=== PATIENT | male | born 1960 | race Caucasian/White ===

== ENCOUNTER 2019-04-13 14:11 | Inpatient (IN) | payer MEDICAID ==
[~2019-04-13] VITALS: Ht 172.7 cm; Wt 93.1 kg
[~2019-04-13 14:11] MED LIST: ASPI-1393 PO; COR25 PO; FURO-152 PO; HYDR-4134 PO; ISOS20TA8 PO; LIP40 PO; LISI-652 PO; PRAS10TA6 PO
[2019-04-13] MEDS ORDERED: ASPIRIN 81MG TABLET PO ONE (15:15)
[2019-04-13 17:16] LABS: BASOPHILS % 1.2 % (0.0-2.0); HEMATOCRIT. 39.6 % (42.0-52.0); HEMOGLOBIN. 13.6 g/dL (14.0-18.0); LYMPHOCYTES % 29.7 % (20.0-50.0); MEAN CORPUSCULAR HEMOGLOBIN 31.7 pg (28.0-32.0); MEAN CORPUSCULAR VOLUME 92.1 fL (80.0-94.0); MEAN PLATELET VOLUME 8.6 fl (7.4-10.4); MONOCYTES % 8.8 % (2.0-8.0); NEUTROPHILS % 56.3 % (40.0-76.0); PLATELET 207 x1000/uL (130-400); RED BLOOD CELL COUNT 4.31 mill/uL (4.7-6.1); RED CELL DISTRIBUTION WIDTH 13.3 % (11.6-14.6)
[2019-04-13 17:17] LABS: CHLORIDE 100 mEq/L (98-107)
[2019-04-13 17:23] LABS: D-DIMER 0.3 mg/L FEU (<0.50); PARTIAL THROMBOPLASTIN TIME 26.6 sec (23.4-31.0); PROTHROMBIN TIME 10.3 sec (9.6-11.0)
[2019-04-13] MEDS ORDERED: POTASSIUM CHLORIDE 20MEQ TABLET SR PO ONE (18:00)
[2019-04-13] MEDS ORDERED: KCL 20MEQ/100ML PREMIX 100 ML IV ONE (18:00)
[2019-04-13] MEDS ORDERED: NITROGLYCERIN 0.4MG TABLET SL SL PRN (18:00)
[2019-04-13] MEDS ORDERED: ENOXAPARIN 100MG/ML SYR SUBCUT ONE (18:15)
[2019-04-13 22:00] VITALS: BP 137/81
[2019-04-13 22:46] VITALS: BP 137/81
[2019-04-14] MEDS ORDERED: TEMA15CA PO (00:31)
[2019-04-14] MEDS ORDERED: TEMAZEPAM 15MG CAPSULE PO PRN (01:00)
[2019-04-14] MEDS: NITROGLYCERIN OINT 1GM/INCH UDPKT TD SCH ×4 (01:07→20:48)
[2019-04-14] MEDS ORDERED: HYDR25TA MT (01:30)
[2019-04-14] MEDS ORDERED: LOSA100T32 MT (01:30)
[2019-04-14] MEDS ORDERED: AMLO10TA4 MT (01:36)
[2019-04-14] MEDS ORDERED: POTA-79 MT (01:38)
[2019-04-14] MEDS ORDERED: METF-414 MT (01:39)
[2019-04-14] MEDS ORDERED: FURO-151 MT (01:40)
[2019-04-14] MEDS ORDERED: NITR0.4T49 SL (01:47)
[2019-04-14 04:00] VITALS: BP 162/78
[2019-04-14] MEDS: MORPHINE SULFATE 2 MG/ML CPJ (NOT FOR IM USE) IV PRN ×2 (04:37→20:51)
[2019-04-14 05:30] LABS: CHLORIDE 105 mEq/L (98-107)
[2019-04-14 06:03] LABS: BASOPHILS % 1.8 % (0.0-2.0); EOSINOPHILS % 4.2 % (0.0-5.0); HEMATOCRIT. 41.5 % (42.0-52.0); HEMOGLOBIN. 14.4 g/dL (14.0-18.0); LYMPHOCYTES % 33.5 % (20.0-50.0); MEAN CORPUSCULAR HEMOGLOBIN 31.7 pg (28.0-32.0); MEAN CORPUSCULAR VOLUME 91.3 fL (80.0-94.0); MEAN PLATELET VOLUME 8.8 fl (7.4-10.4); NEUTROPHILS % 49.5 % (40.0-76.0); PLATELET 206 x1000/uL (130-400); RED BLOOD CELL COUNT 4.55 mill/uL (4.7-6.1); RED CELL DISTRIBUTION WIDTH 13.4 % (11.6-14.6)
[2019-04-14] MEDS: BLOOD SUGAR DIAGNOSTIC STRIP TEST SCH ×4 (07:01→21:00)
[2019-04-14] MEDS ORDERED: METFORMIN HCL 500MG TABLET PO SCH (07:15)
[2019-04-14 08:00] VITALS: BP 144/91
[2019-04-14] MEDS: CARVEDILOL 12.5MG TABLET PO SCH ×2 (08:46→20:53)
[2019-04-14] MEDS: POTASSIUM CHLORIDE 20MEQ TABLET SR PO SCH (08:47)
[2019-04-14] MEDS: ASPIRIN 81MG TABLET PO SCH (08:47)
[2019-04-14] MEDS ORDERED: FUROSEMIDE 20MG TABLET PO SCH (09:00)
[2019-04-14] MEDS ORDERED: PRASUGREL HYDROCHLORIDE 10 MG PO SCH (09:00)
[2019-04-14 12:00] VITALS: BP 122/75
[2019-04-14] MEDS: INSULIN LISPRO 100 UNITS/ML SUBCUT SCH ×3 (12:15→21:00)
[2019-04-14] MEDS ORDERED: CLONIDINE 0.1MG TABLET PO PRN (12:15)
[2019-04-14] MEDS ORDERED: CLONIDINE 0.2MG TABLET PO PRN (12:15)
[2019-04-14] MEDS ORDERED: DEXTROSE 50% WATER 50ML SYRINGE IV PRN (12:15)
[2019-04-14] MEDS ORDERED: POTASSIUM CHLORIDE 20MEQ TABLET SR PO NR ×2 (12:15→19:00)
[2019-04-14] MEDS: LOSARTAN POTASSIUM 25 MG TABLET PO SCH ×2 (13:24→20:52)
[2019-04-14] MEDS: ENOXAPARIN 80MG/0.8ML SYR SUBCUT SCH (13:25)
[2019-04-14] MEDS ORDERED: CLOPIDOGREL 75MG TABLET PO NR (16:00)
[2019-04-14 16:33] LABS: CREATINE KINASE MB FRACTION 3.5 ng/mL (0.5-3.6)
[2019-04-14 20:30] VITALS: BP 182/99
[2019-04-14] MEDS: ATORVASTATIN CALCIUM 40MG TABLET PO SCH (20:51)
[2019-04-14] MEDS: NITROGLYCERIN 0.4MG TABLET SL SL PRN (22:02)
[2019-04-14 23:41] VITALS: BP 141/78
[2019-04-15] VITALS (9 sets, daily range): BP systolic 120–152; BP diastolic 67–98
[2019-04-15] MEDS: ENOXAPARIN 80MG/0.8ML SYR SUBCUT SCH ×2 (00:15→01:03)
[2019-04-15] MEDS: NITROGLYCERIN OINT 1GM/INCH UDPKT TD SCH ×4 (01:07→17:25)
[2019-04-15] MEDS: NITROGLYCERIN 0.4MG TABLET SL SL PRN ×2 (06:42→11:19)
[2019-04-15] MEDS: BLOOD SUGAR DIAGNOSTIC STRIP TEST SCH ×4 (06:46→21:02)
[2019-04-15] MEDS: INSULIN LISPRO 100 UNITS/ML SUBCUT SCH ×4 (06:46→21:15)
[2019-04-15 07:18] LABS: CHLORIDE 109 mEq/L (98-107)
[2019-04-15 07:26] LABS: HDL CHOLESTEROL 38 mg/dL (40-59)
[2019-04-15 07:29] LABS: LDL CHOLESTEROL 73 mg/dL (5-100)
[2019-04-15 07:30] LABS: CREATINE KINASE 93 IU/L (39-308)
[2019-04-15 07:32] LABS: BASOPHILS % 1.2 % (0.0-2.0); EOSINOPHILS % 4.3 % (0.0-5.0); HEMATOCRIT. 41.3 % (42.0-52.0); HEMOGLOBIN. 14.2 g/dL (14.0-18.0); LYMPHOCYTES % 22.5 % (20.0-50.0); MEAN CORPUSCULAR HEMOGLOBIN 32.1 pg (28.0-32.0); MEAN CORPUSCULAR VOLUME 93.2 fL (80.0-94.0); MEAN PLATELET VOLUME 9.2 fl (7.4-10.4); MONOCYTES % 9.1 % (2.0-8.0); NEUTROPHILS % 62.9 % (40.0-76.0); PLATELET 192 x1000/uL (130-400); RED BLOOD CELL COUNT 4.43 mill/uL (4.7-6.1); RED CELL DISTRIBUTION WIDTH 13.2 % (11.6-14.6)
[2019-04-15 07:34] LABS: CREATINE KINASE MB FRACTION 3.1 ng/mL (0.5-3.6)
[2019-04-15] MEDS: CLOPIDOGREL 75MG TABLET PO SCH (08:14)
[2019-04-15] MEDS: POTASSIUM CHLORIDE 20MEQ TABLET SR PO SCH (08:14)
[2019-04-15] MEDS: ASPIRIN 81MG TABLET PO SCH (08:15)
[2019-04-15] MEDS: TICAGRELOR 90 MG TABLET PO SCH ×2 (08:15→17:26)
[2019-04-15] MEDS: LOSARTAN POTASSIUM 25 MG TABLET PO SCH ×2 (08:16→21:24)
[2019-04-15] MEDS: CARVEDILOL 12.5MG TABLET PO SCH ×2 (08:16→21:22)
[2019-04-15 11:21] LABS: *AMPHETAMINES SCREEN URINE NEGATIVE (NEGATIVE)
[2019-04-15 11:22] LABS: *BARBITURATES SCREEN URINE NEGATIVE (NEGATIVE); *BENZODIAZEPINES SCREEN URINE NEGATIVE (NEGATIVE); *COCAINE SCREEN URINE NEGATIVE (NEGATIVE); METHADONE URINE SCREEN NEGATIVE (NEGATIVE); OPIATES URINE SCREEN PRESUMTIVE POSITIVE (NEGATIVE)
[2019-04-15 11:23] LABS: CANNABINOID URINE SCREEN NEGATIVE (NEGATIVE); PHENCYCLIDINE URINE SCREEN NEGATIVE (NEGATIVE)
[2019-04-15] MEDS ORDERED: ASPIRIN/SOD BICARB/CITRIC ACID 324MG TAB EFF ONE (12:32)
[2019-04-15] MEDS ORDERED: MIDAZOLAM HCL 2 MG/2 ML VIAL ONE ×2 (12:32→13:46)
[2019-04-15] MEDS ORDERED: FENTANYL CITRATE/PF 50MCG/ML 2ML VIAL ONE (12:32)
[2019-04-15] MEDS ORDERED: LIDOCAINE HCL 1% 20ML VIAL (Pyxis) INJ ONE (12:33)
[2019-04-15] MEDS ORDERED: IODIXANOL 320MG/ML 100 ML BOTTLE IV ONE ×2 (12:33→14:27)
[2019-04-15] MEDS ORDERED: ACETAMINOPHEN 325MG TABLET PO PRN (13:15)
[2019-04-15] MEDS ORDERED: ONDANSETRON HCL 4MG/2ML INJ IV PRN (13:15)
[2019-04-15] MEDS ORDERED: ATROPINE SULFATE 1MG/10ML SYR IV PRN (13:15)
[2019-04-15] MEDS ORDERED: CLOPIDOGREL 75MG TABLET PO ONE (13:15)
[2019-04-15] MEDS ORDERED: SODIUM CHLORIDE 0.45% 1,000 ML IV ONE (13:15)
[2019-04-15] MEDS ORDERED: MORPHINE SULFATE 2 MG/ML CPJ (NOT FOR IM USE) IV PRN (13:15)
[2019-04-15] MEDS ORDERED: IOHEXOL-300 100 ML BOTTLE ONE (14:11)
[2019-04-15] MEDS ORDERED: CLOPIDOGREL 75MG TABLET ONE (14:37)
[2019-04-15] MEDS: MORPHINE SULFATE 2 MG/ML CPJ (NOT FOR IM USE) IV PRN (17:25)
[2019-04-15] MEDS ORDERED: NICARDIPINE 100MCG/ML 10ML VIAL (CATH LAB) IV ONE (18:18)
[2019-04-15] MEDS ORDERED: HEPARIN SODIUM 1,000 UNIT/1ML VIAL IV ONE (18:18)
[2019-04-15] MEDS ORDERED: NITROGLYCERIN 50MCG/ML 10ML VIAL (CATH LAB) IV ONE (18:18)
[2019-04-15] MEDS: ATORVASTATIN CALCIUM 40MG TABLET PO SCH (21:24)
[2019-04-16] VITALS (7 sets, daily range): BP systolic 123–153; BP diastolic 61–100
[2019-04-16] MEDS: NITROGLYCERIN OINT 1GM/INCH UDPKT TD SCH ×2 (00:29→06:22)
[2019-04-16] MEDS: BLOOD SUGAR DIAGNOSTIC STRIP TEST SCH (06:22)
[2019-04-16] MEDS: INSULIN LISPRO 100 UNITS/ML SUBCUT SCH (06:27)
[2019-04-16 06:44] LABS: BASOPHILS % 1.1 % (0.0-2.0); EOSINOPHILS % 3.7 % (0.0-5.0); HEMATOCRIT. 38.4 % (42.0-52.0); LYMPHOCYTES % 21.2 % (20.0-50.0); MEAN CORPUSCULAR HEMOGLOBIN 31.4 pg (28.0-32.0); MEAN CORPUSCULAR VOLUME 92.5 fL (80.0-94.0); MEAN PLATELET VOLUME 9.3 fl (7.4-10.4); MONOCYTES % 9.6 % (2.0-8.0); NEUTROPHILS % 64.4 % (40.0-76.0); PLATELET 190 x1000/uL (130-400); RED BLOOD CELL COUNT 4.15 mill/uL (4.7-6.1); RED CELL DISTRIBUTION WIDTH 13.3 % (11.6-14.6)
[2019-04-16 07:14] LABS: CHLORIDE 110 mEq/L (98-107)
[2019-04-16] MEDS: POTASSIUM CHLORIDE 20MEQ TABLET SR PO SCH (08:18)
[2019-04-16] MEDS: TICAGRELOR 90 MG TABLET PO SCH (08:18)
[2019-04-16] MEDS: CLOPIDOGREL 75MG TABLET PO SCH (08:18)
[2019-04-16] MEDS: LOSARTAN POTASSIUM 25 MG TABLET PO SCH (08:19)
[2019-04-16] MEDS: CARVEDILOL 12.5MG TABLET PO SCH ×2 (08:27→10:19)
[2019-04-16] MEDS ORDERED: ASPIRIN 325MG TABLET PO SCH (09:00)
[2019-04-16] MEDS ORDERED: CLOPIDOGREL 75MG TABLET PO SCH (09:00)
[2019-04-16] MEDS ORDERED: POTASSIUM CHLORIDE 20MEQ TABLET SR PO SCH ×2 (10:00→10:30)
== END 2019-04-16 12:05 | disposition home or self-care (01) | DRG 174 ==
LOC: ER 14:11 → 5WST 15:07 → EDBEDREQ 18:35 → ENRESERV 19:41 → 3WST 04-15 15:02
PROVIDERS: ADMIT Internal Medicine; ATTEND Internal Medicine
PROC: 4A023N7 Measurement of Cardiac Sampling and Pressure, Left Heart, Percutaneous Approach (ICD-10-PCS; principal; 2019-04-15)
PROC: 027034Z Dilation of Coronary Artery, One Artery with Drug-eluting Intraluminal Device, Percutaneous Approach (ICD-10-PCS; 2019-04-15)
PROC: B2111ZZ Fluoroscopy of Multiple Coronary Arteries using Low Osmolar Contrast (ICD-10-PCS; 2019-04-15)
DX: I21.4 Non-ST elevation (NSTEMI) myocardial infarction (principal); I47.2 Ventricular tachycardia; I25.10 Atherosclerotic heart disease of native coronary artery without angina pectoris; E11.9 Type 2 diabetes mellitus without complications; I11.9 Hypertensive heart disease without heart failure; E66.9 Obesity, unspecified; E87.6 Hypokalemia; E78.00 Pure hypercholesterolemia, unspecified; I25.2 Old myocardial infarction; Z95.5 Presence of coronary angioplasty implant and graft; Z79.02 Long term (current) use of antithrombotics/antiplatelets; Z79.4 Long term (current) use of insulin; Z79.82 Long term (current) use of aspirin; Z87.891 Personal history of nicotine dependence; Z68.31 Body mass index [BMI] 31.0-31.9, adult; Z71.89 Other specified counseling; Z79.899 Other long term (current) drug therapy; Z79.84 Long term (current) use of oral hypoglycemic drugs
CPT/HCPCS: 36415; 71045; 80048; 80061; 80305; 82550; 82553; 82962; 83036; 83735; 83880; 84484; 85347; 85379; 92928; 93005; 93306; 93458; 96374; 99291; C1769; C1874; C1887; C1893; J1644; J1650; J1815; J2250; J2270; J3010; J3480; J3490; J7040; Q9967; J8499

== ENCOUNTER 2019-05-16 08:04 | Inpatient (IN) | payer MEDICAID ==
[2019-05-16] VITALS (27 sets, daily range): BP systolic 127–178; BP diastolic 63–105
[~2019-05-16] VITALS: Ht 167.6 cm; Wt 75.1 kg
[~2019-05-16 08:04] MED LIST changes: +AMLO10TA4 MT; +FURO-151 MT; -LISI-652 PO; +LOSA100T32 MT; +METF-414 MT; +NITR0.4T49 SL; +POTA-79 MT; +TEMA15CA PO
[2019-05-16] MEDS ORDERED: ASPIRIN 81MG TABLET PO ONE (08:45)
[2019-05-16] MEDS: NITROGLYCERIN 0.4MG TABLET SL SL PRN ×3 (08:58→13:00)
[2019-05-16 08:59] LABS: BASOPHILS % 1.1 % (0.0-2.0); EOSINOPHILS % 2.9 % (0.0-5.0); HEMATOCRIT. 41.9 % (42.0-52.0); HEMOGLOBIN. 14.2 g/dL (14.0-18.0); LYMPHOCYTES % 18.3 % (20.0-50.0); MEAN CORPUSCULAR HEMOGLOBIN 30.9 pg (28.0-32.0); MEAN CORPUSCULAR VOLUME 91.1 fL (80.0-94.0); MEAN PLATELET VOLUME 9.4 fl (7.4-10.4); NEUTROPHILS % 68.7 % (40.0-76.0); PLATELET 219 x1000/uL (130-400); RED CELL DISTRIBUTION WIDTH 12.9 % (11.6-14.6)
[2019-05-16 09:06] LABS: CHLORIDE 104 mEq/L (98-107)
[2019-05-16] MEDS ORDERED: POTASSIUM CHLORIDE 20MEQ TABLET SR PO ONE (10:00)
[2019-05-16] MEDS ORDERED: ENOXAPARIN 100MG/ML SYR SUBCUT ONE (10:00)
[2019-05-16] MEDS ORDERED: ONDANSETRON HCL 4MG/2ML INJ IV PRN (12:00)
[2019-05-16] MEDS ORDERED: ACETAMINOPHEN 325MG TABLET PO PRN (12:00)
[2019-05-16] MEDS ORDERED: AMIODARONE HCL 900 MG in DEXT 5% WATER 482 ML IV PRN (13:00)
[2019-05-16] MEDS ORDERED: AMIODARONE HCL 150 MG in DEXT 5% WATER 100 ML IV ONE (13:00)
[2019-05-16] MEDS ORDERED: CARVEDILOL 6.25 MG TABLET PO SCH (14:00)
[2019-05-16] MEDS ORDERED: AMIODARONE HCL 50MG/ML 3ML VIAL IV ONE (14:30)
[2019-05-16] MEDS ORDERED: MORPHINE SULFATE 2 MG/ML CPJ (NOT FOR IM USE) IV PRN (14:45)
[2019-05-16] MEDS ORDERED: SODIUM BICARBONATE 4% (2.4MEQ) 5ML VIAL IV ONE (14:52)
[2019-05-16] MEDS ORDERED: LIDOCAINE HCL 1% 20ML VIAL (Pyxis) INJ ONE (14:52)
[2019-05-16] MEDS ORDERED: AMIODARONE HCL 900 MG in DEXT 5% WATER 482 ML IV SCH (15:30)
[2019-05-16] MEDS ORDERED: AMIODARONE IN DEXTROSE,ISO-OSM 100 ML IV SCH (15:30)
[2019-05-16] MEDS ORDERED: KCL 20MEQ/100ML PREMIX 100 ML IV SCH (16:00)
[2019-05-16 17:05] LABS: PROTHROMBIN TIME 10.1 sec (9.6-11.0)
[2019-05-16] MEDS ORDERED: CLOP75TA33 MT (19:25)
[2019-05-16] MEDS ORDERED: HYDR25TA MT (19:25)
[2019-05-16] MEDS ORDERED: FURO20TA4 MT (20:04)
[2019-05-16] MEDS: ENOXAPARIN 100MG/ML SYR SUBCUT SCH ×2 (21:00→22:17)
[2019-05-16] MEDS ORDERED: HYDRALAZINE HCL 25MG TABLET PO SCH (22:00)
[2019-05-16] MEDS: ATORVASTATIN CALCIUM 40MG TABLET PO SCH (22:14)
[2019-05-16] MEDS: CARVEDILOL 6.25 MG TABLET PO SCH (22:15)
[2019-05-16] MEDS: AMLODIPINE 5MG TABLET PO SCH (22:16)
[2019-05-16] MEDS: NITROGLYCERIN OINT 1GM/INCH UDPKT TD SCH (22:16)
[2019-05-17] VITALS (76 sets, daily range): BP systolic 97–167; BP diastolic 46–95
[2019-05-17] MEDS ORDERED: POTASSIUM CHLORIDE 20MEQ TABLET SR PO NR ×2 (01:00→21:45)
[2019-05-17 05:14] LABS: BASOPHILS % 1.3 % (0.0-2.0); EOSINOPHILS % 3.6 % (0.0-5.0); HEMATOCRIT. 37.9 % (42.0-52.0); HEMOGLOBIN. 13.1 g/dL (14.0-18.0); LYMPHOCYTES % 27.7 % (20.0-50.0); MEAN CORPUSCULAR HEMOGLOBIN 31.4 pg (28.0-32.0); MEAN CORPUSCULAR VOLUME 91.1 fL (80.0-94.0); MEAN PLATELET VOLUME 9.4 fl (7.4-10.4); MONOCYTES % 9.4 % (2.0-8.0); PLATELET 180 x1000/uL (130-400); RED BLOOD CELL COUNT 4.16 mill/uL (4.7-6.1); RED CELL DISTRIBUTION WIDTH 12.8 % (11.6-14.6)
[2019-05-17 05:21] LABS: CHLORIDE 106 mEq/L (98-107)
[2019-05-17] MEDS: NITROGLYCERIN OINT 1GM/INCH UDPKT TD SCH ×3 (06:39→21:51)
[2019-05-17] MEDS ORDERED: POTASSIUM CHLORIDE 20MEQ TABLET SR PO SCH (07:00)
[2019-05-17] MEDS: AMLODIPINE 5MG TABLET PO SCH ×2 (08:43→21:04)
[2019-05-17] MEDS: CLOPIDOGREL 75MG TABLET PO SCH (08:43)
[2019-05-17] MEDS: ASPIRIN 81MG EC TABLET PO SCH (08:43)
[2019-05-17] MEDS: ENOXAPARIN 100MG/ML SYR SUBCUT SCH ×2 (08:44→21:00)
[2019-05-17] MEDS: BLOOD SUGAR DIAGNOSTIC STRIP TEST SCH ×4 (08:44→21:05)
[2019-05-17] MEDS: CARVEDILOL 6.25 MG TABLET PO SCH ×2 (08:44→21:04)
[2019-05-17] MEDS: AMIODARONE HCL 200 MG TABLET PO SCH (21:04)
[2019-05-17] MEDS: ATORVASTATIN CALCIUM 40MG TABLET PO SCH (21:04)
[2019-05-17] MEDS: ZOLPIDEM TARTRATE 5MG TABLET PO PRN (23:47)
[2019-05-18] VITALS (38 sets, daily range): BP systolic 98–163; BP diastolic 50–109
[2019-05-18 05:55] LABS: BASOPHILS % 1.4 % (0.0-2.0); EOSINOPHILS % 5.1 % (0.0-5.0); HEMATOCRIT. 37.1 % (42.0-52.0); HEMOGLOBIN. 12.7 g/dL (14.0-18.0); LYMPHOCYTES % 32.7 % (20.0-50.0); MEAN CORPUSCULAR HEMOGLOBIN 31.1 pg (28.0-32.0); MEAN CORPUSCULAR VOLUME 91.1 fL (80.0-94.0); MEAN PLATELET VOLUME 9.5 fl (7.4-10.4); MONOCYTES % 8.9 % (2.0-8.0); NEUTROPHILS % 51.9 % (40.0-76.0); PLATELET 173 x1000/uL (130-400); RED BLOOD CELL COUNT 4.07 mill/uL (4.7-6.1); RED CELL DISTRIBUTION WIDTH 12.7 % (11.6-14.6)
[2019-05-18] MEDS: NITROGLYCERIN OINT 1GM/INCH UDPKT TD SCH ×3 (06:00→22:24)
[2019-05-18] MEDS ORDERED: POTASSIUM CHLORIDE INJ 40 MEQ in DEXT 5% WATER 250 ML IV ONE (07:00)
[2019-05-18] MEDS: ENOXAPARIN 100MG/ML SYR SUBCUT SCH (08:12)
[2019-05-18] MEDS: CARVEDILOL 6.25 MG TABLET PO SCH (08:13)
[2019-05-18] MEDS: AMIODARONE HCL 200 MG TABLET PO SCH ×2 (08:13→21:06)
[2019-05-18] MEDS: AMLODIPINE 5MG TABLET PO SCH ×2 (08:14→21:05)
[2019-05-18] MEDS: CLOPIDOGREL 75MG TABLET PO SCH (08:14)
[2019-05-18] MEDS: ASPIRIN 81MG EC TABLET PO SCH (08:14)
[2019-05-18] MEDS: BLOOD SUGAR DIAGNOSTIC STRIP TEST SCH ×4 (08:25→21:32)
[2019-05-18] MEDS: SPIRONOLACTONE 25MG TABLET PO SCH (11:53)
[2019-05-18] MEDS ORDERED: CARVEDILOL 12.5MG TABLET PO SCH (13:14)
[2019-05-18] MEDS: ATORVASTATIN CALCIUM 40MG TABLET PO SCH (21:05)
[2019-05-18] MEDS: CARVEDILOL 12.5MG TABLET PO SCH (21:19)
[2019-05-18] MEDS: ZOLPIDEM TARTRATE 5MG TABLET PO PRN (23:38)
[2019-05-19] VITALS (19 sets, daily range): BP systolic 101–136; BP diastolic 52–77
[2019-05-19 05:40] LABS: BASOPHILS % 1.1 % (0.0-2.0); EOSINOPHILS % 5.1 % (0.0-5.0); HEMATOCRIT. 36.8 % (42.0-52.0); HEMOGLOBIN. 12.6 g/dL (14.0-18.0); LYMPHOCYTES % 26.6 % (20.0-50.0); MEAN CORPUSCULAR HEMOGLOBIN 31.2 pg (28.0-32.0); MEAN CORPUSCULAR VOLUME 91.3 fL (80.0-94.0); MONOCYTES % 8.6 % (2.0-8.0); NEUTROPHILS % 58.6 % (40.0-76.0); PLATELET 190 x1000/uL (130-400); RED BLOOD CELL COUNT 4.03 mill/uL (4.7-6.1); RED CELL DISTRIBUTION WIDTH 12.8 % (11.6-14.6)
[2019-05-19 05:55] LABS: CHLORIDE 113 mEq/L (98-107)
[2019-05-19] MEDS: NITROGLYCERIN OINT 1GM/INCH UDPKT TD SCH ×2 (06:15→14:00)
[2019-05-19] MEDS: ASPIRIN 81MG EC TABLET PO SCH (08:28)
[2019-05-19] MEDS: AMIODARONE HCL 200 MG TABLET PO SCH (08:28)
[2019-05-19] MEDS: CLOPIDOGREL 75MG TABLET PO SCH (08:28)
[2019-05-19] MEDS: CARVEDILOL 12.5MG TABLET PO SCH (08:29)
[2019-05-19] MEDS: SPIRONOLACTONE 25MG TABLET PO SCH (08:29)
[2019-05-19] MEDS: AMLODIPINE 5MG TABLET PO SCH (08:29)
[2019-05-19] MEDS ORDERED: POTASSIUM CHLORIDE 20MEQ TABLET SR PO NR (10:30)
[2019-05-19] MEDS: BLOOD SUGAR DIAGNOSTIC STRIP TEST SCH (12:26)
[2019-05-19] MEDS ORDERED: AMIODARONE HCL 200 MG TABLET PO SCH ×2 (21:00)
== END 2019-05-19 16:55 | disposition home or self-care (01) | DRG 190 ==
LOC: ER 08:04 → 3WST 09:58 → ENRESERV 13:03 → CVICU 15:11 → 3WST 05-19 07:12
PROVIDERS: ADMIT Internal Medicine; ATTEND Internal Medicine
PROC: 02HV33Z Insertion of Infusion Device into Superior Vena Cava, Percutaneous Approach (ICD-10-PCS; principal; 2019-05-16)
PROC: B548ZZA Ultrasonography of Superior Vena Cava, Guidance (ICD-10-PCS; 2019-05-16)
DX: I21.4 Non-ST elevation (NSTEMI) myocardial infarction (principal); N17.0 Acute kidney failure with tubular necrosis; I47.2 Ventricular tachycardia; I50.9 Heart failure, unspecified; I25.110 Atherosclerotic heart disease of native coronary artery with unstable angina pectoris; E78.5 Hyperlipidemia, unspecified; E87.6 Hypokalemia; E11.9 Type 2 diabetes mellitus without complications; J44.9 Chronic obstructive pulmonary disease, unspecified; I11.0 Hypertensive heart disease with heart failure; E78.00 Pure hypercholesterolemia, unspecified; F17.210 Nicotine dependence, cigarettes, uncomplicated; I42.9 Cardiomyopathy, unspecified; G45.9 Transient cerebral ischemic attack, unspecified; I49.9 Cardiac arrhythmia, unspecified; Z95.5 Presence of coronary angioplasty implant and graft; I25.2 Old myocardial infarction; Z82.49 Family history of ischemic heart disease and other diseases of the circulatory system; Z83.3 Family history of diabetes mellitus; Z79.82 Long term (current) use of aspirin; Z79.899 Other long term (current) drug therapy; Z79.84 Long term (current) use of oral hypoglycemic drugs; Z84.89 Family history of other specified conditions
CPT/HCPCS: 36415; 70551; 71045; 76937; 80048; 80076; 82962; 83735; 83880; 84132; 84484; 93005; 93306; 96372; 97162; 99291; C1725; J0282; J1650; J3480; J3490; J7060